=== PATIENT | male | born 1930 | race Hispanic/Latino ===

== ENCOUNTER 2019-12-30 08:11 | Inpatient (IN) | payer MEDICARE ==
[2019-12-30] MEDS ORDERED: ONDANSETRON HCL 4 MG/2 ML VIAL IVP PRN (10:00)
[2019-12-30] MEDS ORDERED: MORPHINE SULFATE 4 MG/1ML SYG IV PRN (10:00)
[2019-12-30] MEDS ORDERED: ACETAMINOPHEN 325 MG TAB PO PRN ×2 (10:00)
[2019-12-30] MEDS: FAMOTIDINE/PF 20 MG/2 ML VIAL IV SCH (10:05)
[2019-12-30] MEDS ORDERED: ONDANSETRON HCL 4 MG/2 ML VIAL ONE (10:10)
[2019-12-30] MEDS ORDERED: MORPHINE SULFATE 4 MG/1ML SYG ONE (10:11)
[2019-12-30] MEDS ORDERED: SODIUM CHLORIDE 0.9% 1000ML 1,000 ML IV ONE (12:00)
[2019-12-30 14:20] VITALS: BP 108/60; PULSE 82; RESP 18; TEMP 97.7
[2019-12-30] MEDS: MORPHINE SULFATE 2 MG/ML 1ML SYG IVP PRN ×2 (14:44→20:54)
[2019-12-30] MEDS: SODIUM CHLORIDE 0.9% 1000ML 1,000 ML IV SCH ×2 (15:11→23:30)
[2019-12-30] MEDS ORDERED: CEFAZOLIN SODIUM 1 GM VIAL IVP PRN (15:45)
--- NOTE | 2019-12-30 16:02 | NUR ---
DCP- [facility] spoke to pt's Xi Kaur [phone]. Son Nickolas Kaur [phone] is ER contact/Person to call first. Per , pt lives at home with her. Pt is very hard or hearing, so please call son or for information or consents. Prior to fall, pt had been independent of ADLS, but had noticed pt was getting weaker and being dizzy. This am pt was going outside to have coffee, when he fell. Pt has no DME, has nebulizer, no in home care services. states after surgery they want pt to go to [facility] for rehab. Pt will need w/c. PCP is Karsten Chen and he uses [facility] for rx. Plan is IR[facility] per . CM to f/u and assist as needed Addendum: 12/30/19 at 1613 by ELMER WILSON Amended: Links added.
[2019-12-30] MEDS ORDERED: ENOXAPARIN SODIUM 30 MG/0.3 ML SQ SCH (17:30)
[2019-12-30] MEDS: TAMSULOSIN HCL 0.4 MG CAP.ER.24H PO SCH (19:00)
[2019-12-30 19:28] VITALS: BP 110/56; PULSE 75; RESP 19; TEMP 98.5
[2019-12-30] MEDS ORDERED: BISACODYL 10 MG SUPP.RECT RC ONE (21:00)
[2019-12-31] VITALS (27 sets, daily range): BP systolic 108–158; BP diastolic 49–77; PULSE 68–107; RESP 15–20; TEMP 97.5–100.5
[2019-12-31] MEDS: MORPHINE SULFATE 2 MG/ML 1ML SYG IVP PRN (04:47)
[2019-12-31] MEDS ORDERED: CEFAZOLIN SODIUM 1 GM VIAL ONE (07:24)
[2019-12-31] MEDS ORDERED: ROPIVACAINE 0.5% 5MG/ML 30ML IJ ONE (07:33)
[2019-12-31] MEDS ORDERED: KETAMINE 50MG/ML SYRINGE 50 MG/ML DISP.SYRIN IV ONE (07:34)
[2019-12-31] MEDS ORDERED: LIDOCAINE PF 2% 5ML ABBOJECT ONE (07:39)
[2019-12-31] MEDS ORDERED: PROPOFOL 10 MG/ML 20ML VIAL IV ONE (07:40)
[2019-12-31] MEDS ORDERED: ROCURONIUM 10MG/1ML SYR 10 MG/ML ML ONE (07:40)
[2019-12-31] MEDS: SODIUM CHLORIDE 0.9% 1000ML 1,000 ML IV SCH ×6 (07:59→23:15)
[2019-12-31] MEDS ORDERED: GLYCOPYRROLATE 1 MG/5 ML SYRINGE ONE (08:00)
[2019-12-31] MEDS ORDERED: HYDROCODONE/ACETAMINOPHEN 5/325 MG TAB PO PRN ×2 (08:00)
[2019-12-31] MEDS ORDERED: DIPHENHYDRAMINE HCL 25 MG CAPSULE PO PRN (08:00)
[2019-12-31] MEDS ORDERED: POTASSIUM CHLORIDE 10% ELIXIR 20 MEQ/15 ML UDCUP PO PRN (08:00)
[2019-12-31] MEDS ORDERED: TEMAZEPAM 15 MG CAPSULE PO PRN (08:00)
[2019-12-31] MEDS ORDERED: POTASSIUM CHLORIDE 20 MEQ ERTAB PO PRN (08:00)
[2019-12-31] MEDS ORDERED: POTASSIUM CHLORIDE 20MEQ/100ML 100 ML IV PRN (08:00)
[2019-12-31] MEDS ORDERED: FERROUS FUMARATE 324 MG TABLET PO PRN (08:00)
[2019-12-31] MEDS ORDERED: LIDOCAINE HCL-MPF 1% 2ML VIAL IV PRN (08:00)
[2019-12-31] MEDS ORDERED: CALCIUM CARBONATE 500 MG TABLET PO PRN (08:00)
[2019-12-31] MEDS ORDERED: EPHEDRINE SULFATE 50 MG/ML AMPULE ONE (08:06)
[2019-12-31] MEDS ORDERED: DEXAMETHASONE SOD PHOSPHATE 4 MG/ML 1ML VIAL ONE (08:11)
[2019-12-31] MEDS ORDERED: ONDANSETRON HCL 4 MG/2 ML VIAL ONE (08:11)
[2019-12-31] MEDS ORDERED: NEOSTIGMINE 5MG/5ML SYR IV ONE (08:23)
[2019-12-31] MEDS: TAMSULOSIN HCL 0.4 MG CAP.ER.24H PO SCH ×2 (09:00→17:24)
[2019-12-31] MEDS: FAMOTIDINE/PF 20 MG/2 ML VIAL IV SCH (09:00)
[2019-12-31] MEDS: DOCUSATE SODIUM 100 MG CAP PO SCH (09:00)
[2019-12-31] MEDS: POLYETHYLENE GLYCOL 3350 17 GM POWD.PACK PO SCH (09:00)
--- NOTE | 2019-12-31 10:08 | NUR ---
patient is schedule for procedure today. Will let weekender Physical Therapist to initiate skilled PT Evaluation 01/01/2020. Addendum: 12/31/19 at 1010 by TEMITOPE RUTS, PT PT Amended: Links added.
[2019-12-31] MEDS ORDERED: HYDROMORPHONE PCA 10 MG/50 ML 50 ML IV PRN (12:15)
[2019-12-31] MEDS ORDERED: ONDANSETRON HCL 4 MG/2 ML VIAL IVP PRN (12:15)
[2019-12-31] MEDS ORDERED: SODIUM CHLORIDE 0.9% 250 ML IV ONE (12:48)
[2019-12-31] MEDS: FAMOTIDINE 20MG TAB 20 MG TAB PO SCH ×2 (13:41→20:07)
[2019-12-31] MEDS: ENOXAPARIN SODIUM 40 MG/0.4 ML SYRINGE SQ SCH (13:42)
[2019-12-31] MEDS: FUROSEMIDE 10 MG/ML 2ML VIAL IV SCH ×2 (16:31→23:09)
[2019-12-31] MEDS: CEFAZOLIN SODIUM 1 GM VIAL IVP SCH ×2 (16:37→23:09)
[2019-12-31] MEDS: FERROUS FUMARATE 324 MG TABLET PO SCH ×2 (18:29→19:49)
--- NOTE | 2019-12-31 19:40 | NUR ---
prbc start prbc infusion as ordered temp 98.7 p 88 r 20 b/p /, left forearm 20 gauge catheter patent
--- NOTE | 2019-12-31 19:55 | NUR ---
effect temp 98.1 f , r 20 p 78 b/p 146/84 sat 98 % on r/a , no reaction noted, tolerating well
--- NOTE | 2019-12-31 20:00 | NUR ---
assessment patient awake, alert, ox3, no sob, no c/o pain at this time,encourage deep breathing exercises and reinforce is with maximum volume inspiration of 1500, dressing left hip d/i, ble scds in place, encourage ble dorsiflexion, teach patient plan of care and expected outcome, patient verbalizes understanding via teach back
--- NOTE | 2019-12-31 23:00 | NUR ---
prbc 2 nd unit prbc complete no reaction noted,temp 98.4 f p 77 r 20 b/p 154/71 tolerated well
[2020-01-01 04:20] VITALS: BP 119/60; PULSE 75; RESP 20; TEMP 97.5
[2020-01-01] MEDS: FAMOTIDINE 20MG TAB 20 MG TAB PO SCH ×2 (08:12→20:34)
[2020-01-01] MEDS: ENOXAPARIN SODIUM 40 MG/0.4 ML SYRINGE SQ SCH (08:13)
[2020-01-01] MEDS: POLYETHYLENE GLYCOL 3350 17 GM POWD.PACK PO SCH (08:13)
[2020-01-01] MEDS: TAMSULOSIN HCL 0.4 MG CAP.ER.24H PO SCH (08:13)
[2020-01-01] MEDS: KETOROLAC TROMETHAMINE 15MG/ML IV PRN (08:14)
[2020-01-01] MEDS: DOCUSATE SODIUM 100 MG CAP PO SCH (08:14)
[2020-01-01] MEDS: FERROUS SULFATE 325 MG TABLET.DR PO SCH ×2 (09:00→20:34)
[2020-01-01 09:01] VITALS: BP 130/54; PULSE 70; RESP 18; TEMP 98.1
[2020-01-01 11:42] VITALS: BP 87/52; PULSE 82; RESP 18; TEMP 98.2
--- NOTE | 2020-01-01 13:01 | NUR ---
cm note call made to [facility], and spoke to jerica, and states [facility] is now closed, and are not accepting pts. discussed dc planning with son bruno [phone]. and states he is aware that [facility] no longer an option as it is closed. states that he will decide in a day or so if he wishes snf or acute rehab at [facility]. he will discuss with dr brizuela and let cm know.
[2020-01-01] MEDS: SODIUM CHLORIDE 0.9% 1000ML 1,000 ML IV SCH (15:20)
[2020-01-01 16:54] VITALS: BP 117/57; PULSE 66; RESP 18; TEMP 97.9
[2020-01-01 19:28] VITALS: BP 117/60; PULSE 64; RESP 20; TEMP 97.7
[2020-01-01] MEDS ORDERED: MAG HYDROX/AL HYDROX/SIMETH ES 30 ML SUSP UDCUP PO PRN (23:30)
[2020-01-02] VITALS (7 sets, daily range): BP systolic 92–141; BP diastolic 52–82; PULSE 55–93; RESP 18–20; TEMP 97.4–98.7
[2020-01-02] MEDS: SODIUM CHLORIDE 0.9% 1000ML 1,000 ML IV SCH ×2 (03:41→18:00)
--- NOTE | 2020-01-02 04:56 | NUR ---
N/V C/O NAUSEA, VOMITED APPROXIMATE 100 CC OF GASTRIC SECRETIONS, ORAL CARE GIVEN, ZOFRAN 4 MG IVP GIVEN
--- NOTE | 2020-01-02 05:24 | NUR ---
MED EFFECT N/V SUBSIDED, RESTING COMFORTABLY, CALL [facility] AT REACH
[2020-01-02] MEDS ORDERED: BISACODYL 5 MG TABLET.DR PO PRN (08:00)
[2020-01-02] MEDS: FUROSEMIDE 10 MG/ML 2ML VIAL IV SCH (08:01)
[2020-01-02] MEDS: DOCUSATE SODIUM 100 MG CAP PO SCH (09:00)
[2020-01-02] MEDS: POLYETHYLENE GLYCOL 3350 17 GM POWD.PACK PO SCH (09:09)
[2020-01-02] MEDS: TAMSULOSIN HCL 0.4 MG CAP.ER.24H PO SCH (09:10)
[2020-01-02] MEDS: ENOXAPARIN SODIUM 40 MG/0.4 ML SYRINGE SQ SCH (09:10)
[2020-01-02] MEDS: FERROUS SULFATE 325 MG TABLET.DR PO SCH ×2 (09:10→21:48)
[2020-01-02] MEDS: FAMOTIDINE 20MG TAB 20 MG TAB PO SCH (09:10)
[2020-01-02] MEDS: KETOROLAC TROMETHAMINE 15MG/ML IV PRN (09:14)
--- NOTE | 2020-01-02 18:24 | NUR ---
cm note spoke to pts son dr carr , and also to pt's ms acrr, both state they wish for pt to go home with home health, and to setup a walker standard and 3 in 1 bsc. Choice letter obtained, and referral made to [facility], and to [facility] for above dme. pending approval. also provided with [facility] info for possible provider services, and [facility] also provides private pay sitter services. verbalizes understanding
[2020-01-03 04:00] VITALS: BP 129/73; PULSE 77; RESP 18; TEMP 98.2
[2020-01-03] MEDS ORDERED: BISACODYL 10 MG SUPP.RECT RC PRN (08:00)
[2020-01-03 08:09] VITALS: BP 122/53; PULSE 66; RESP 20; TEMP 98.1
[2020-01-03] MEDS: POLYETHYLENE GLYCOL 3350 17 GM POWD.PACK PO SCH (10:53)
[2020-01-03] MEDS: TAMSULOSIN HCL 0.4 MG CAP.ER.24H PO SCH (10:53)
[2020-01-03] MEDS: FERROUS SULFATE 325 MG TABLET.DR PO SCH (10:53)
[2020-01-03] MEDS: DOCUSATE SODIUM 100 MG CAP PO SCH (10:54)
[2020-01-03] MEDS: FUROSEMIDE 10 MG/ML 2ML VIAL IV SCH (10:57)
[2020-01-03] MEDS: ENOXAPARIN SODIUM 40 MG/0.4 ML SYRINGE SQ SCH (10:58)
[2020-01-03 11:22] VITALS: BP 103/58; PULSE 64; RESP 18; TEMP 98.6
--- NOTE | 2020-01-03 14:58 | NUR ---
CM Note: [facility] approval CM spoke to Abner ford/[facility], pt has approval. Primary nurse aware. CM to cont to follow up.
--- NOTE | 2020-01-03 14:59 | NUR ---
CM Notes: [facility] approval family will pick remover DME CM spoke to Kamille ford/[facility], pt has approval, family to pick remover standard walker no wheels and 3 in 1 chair at [facility] today. Pt safe to DC once MD clear. Primary nurse aware. CM to cont to follow up.
[2020-01-03 16:22] VITALS: BP 134/58; PULSE 67; RESP 16; TEMP 97.8
== END 2020-01-03 18:00 | disposition home health service (06) | DRG 481 ==
LOC: EDH 08:11 → EDHIP 09:47 → 3DH 14:20
PROVIDERS: ADMIT Hospitalist; ATTEND Hospitalist
PROC: 0QS706Z Reposition Left Upper Femur with Intramedullary Internal Fixation Device, Open Approach (ICD-10-PCS; principal; 2019-12-31 07:42)
PROC: 3E0T3BZ Introduction of Anesthetic Agent into Peripheral Nerves and Plexi, Percutaneous Approach (ICD-10-PCS; 2019-12-31 07:42)
PROC: 30233N1 Transfusion of Nonautologous Red Blood Cells into Peripheral Vein, Percutaneous Approach (ICD-10-PCS; 2019-12-31 07:42)
DX: S72.142A Displaced intertrochanteric fracture of left femur, initial encounter for closed fracture (principal); N17.9 Acute kidney failure, unspecified; D62 Acute posthemorrhagic anemia; E86.0 Dehydration; N40.1 Benign prostatic hyperplasia with lower urinary tract symptoms; K56.41 Fecal impaction; Z20.828 Contact with and (suspected) exposure to other viral communicable diseases; W19.XXXA Unspecified fall, initial encounter; Y93.89 Activity, other specified; Y92.098 Other place in other non-institutional residence as the place of occurrence of the external cause; Y99.8 Other external cause status; Z82.49 Family history of ischemic heart disease and other diseases of the circulatory system